=== PATIENT | male | born 1935 | race Caucasian/White ===

== ENCOUNTER 2017-03-16 16:34 | Emergency (ER) | payer MEDICARE ==
[~2017-03-16] VITALS: Ht 175.3 cm; Wt 90.0 kg
[~2017-03-16 16:34] MED LIST: AMBIEN10 MG PO; ASPIRIN EC81 MG PO; ATIVAN0.5 MG PO; BACTRIM DS1 TAB PO; FLEXERIL PO; FLONASE NASAL50 MCG; HYDROCO/APAP1 TA9 PO; LIPITOR20 MG PO; LIPITOR40 MG OR; LISINOPRIL10 MG PO; METOPROL TAR25 MG PO; NITROGLYCER0.4 MG SL; ONCOVITE PO; ONDANSETRON4 MG PO; PLAVIX75 MG OR; SB ASA LOW81 MG PO; ZOLOFT25 MG PO; ZOLPIDEM5 M1 PO
[2017-03-16 18:27] LABS: INFLUENZA A NONE DETECTED (NONE DETECT); INFLUENZA B NONE DETECTED (NONE DETECT)
[2017-03-16] MEDS ORDERED: NAPROSYN500 MG PO (18:52)
[2017-03-16] MEDS ORDERED: BACTRIM DS1 TAB PO (18:52)
[2017-03-16 19:09] VITALS: BP 115/73
== END 2017-03-16 19:09 | disposition home or self-care (01) ==
LOC: ED 16:34
PROVIDERS: Emergency Medicine
DX: R05 Cough (principal); J06.9 Acute upper respiratory infection, unspecified; L03.032 Cellulitis of left toe

== ENCOUNTER 2017-04-20 12:01 | Emergency (ER) | payer MEDICARE ==
[~2017-04-20] VITALS: Ht 175.3 cm; Wt 80.0 kg
[~2017-04-20 12:01] MED LIST changes: +NAPROSYN500 MG PO
[2017-04-20] MEDS ORDERED: [UNRECOGNIZED DRUG - REMARK] PO (12:11)
[2017-04-20 13:42] LABS: HEMATOCRIT 34.1 % (39.0-50.0); HEMOGLOBIN 11.2 g/dl (14.0-18.0); IMMATURE GRANULOCYTES 0.3 % (0.0-1.0); MEAN CELL VOLUME 88.3 fL CALC (80.0-100.0); MEAN CORPUSCULAR HGB CONC 32.8 g/L CALC (32.0-36.0); NEUT# 6.25 thou/uL (1.82-7.42); RED BLOOD COUNT 3.86 mill/uL (4.70-6.10); RED CELL DISTRI WIDTH 12.4 % (11.5-15.5)
[2017-04-20 14:00] LABS: ALBUMIN 3.8 g/dL (3.2-5.0); BILIRUBIN, TOTAL 1.1 mg/dL (0.0-1.4); CALCIUM 8.9 mg/dL (8.4-10.2); CREATININE 1.8 mg/dL (0.7-1.3); POTASSIUM 4.7 mmol/l (3.5-5.1); TOTAL PROTEIN 6.6 g/dL (6.3-8.2)
[2017-04-20] MEDS ORDERED: CLINDAMYCIN300 M1 PO (14:23)
[2017-04-20 14:52] VITALS: BP 156/74
== END 2017-04-20 15:06 | disposition home or self-care (01) ==
LOC: ED 12:01
PROVIDERS: Emergency Medicine
DX: L03.116 Cellulitis of left lower limb (principal); M25.562 Pain in left knee; M25.462 Effusion, left knee

== ENCOUNTER 2018-05-07 09:39 | Emergency (ER) | payer MEDICARE ==
[~2018-05-07] VITALS: Ht 175.3 cm; Wt 72.7 kg
[~2018-05-07 09:39] MED LIST changes: +CLINDAMYCIN300 M1 PO; +[UNRECOGNIZED DRUG - REMARK] PO
[2018-05-07] MEDS ORDERED: TAMSULOSIN HCL0.4 MG PO (10:27)
[2018-05-07 10:55] LABS: URINE BILIRUBIN - DIPSTICK NEGATIVE (NEGATIVE); URINE BLOOD DIPSTICK TRACE-LYSED (NEGATIVE); URINE COLOR YELLOW; URINE GLUCOSE - DIPSTICK NEGATIVE (NEGATIVE); URINE KETONE NEGATIVE (NEGATIVE); URINE LEUK ESTERASE NEGATIVE (NEGATIVE); URINE NITRITE - DIPSTICK NEGATIVE (Negative); URINE PH 5.5 (4.5-8.0); URINE PROTEIN - DIPSTICK NEGATIVE (NEG-TRACE); URINE UROBILINOGEN - DIPSTICK 0.2 E.U./dL (0.2)
[2018-05-07] MEDS ORDERED: PYRIDIUM200 MG PO (11:30)
[2018-05-07] MEDS ORDERED: KEFLEX500 M1 PO (11:30)
[2018-05-07 11:34] VITALS: BP 140/82
== END 2018-05-07 11:34 | disposition home or self-care (01) ==
LOC: ED 09:39
PROVIDERS: Family Medicine
DX: R30.0 Dysuria (principal); N40.0 Benign prostatic hyperplasia without lower urinary tract symptoms; E78.00 Pure hypercholesterolemia, unspecified; Z85.51 Personal history of malignant neoplasm of bladder

== ENCOUNTER 2018-06-04 09:56 | Emergency (ER) | payer MEDICARE ==
[~2018-06-04] VITALS: Ht 175.3 cm; Wt 80.0 kg
[~2018-06-04 09:56] MED LIST changes: +KEFLEX500 M1 PO; +PYRIDIUM200 MG PO; +TAMSULOSIN HCL0.4 MG PO
[2018-06-04 12:02] LABS: HEMATOCRIT 36.2 % (39.0-50.0); IMMATURE GRANULOCYTES 0.1 % (0.0-5.0); MEAN CELL VOLUME 88.1 fL CALC (80.0-100.0); MEAN CORPUSCULAR HGB 29.2 pG CALC (26.0-32.0); MEAN CORPUSCULAR HGB CONC 33.1 g/L CALC (32.0-36.0); NEUT# 4.75 thou/uL (1.82-7.42); RED BLOOD COUNT 4.11 mill/uL (4.70-6.10); RED CELL DISTRI WIDTH 12.6 % (11.5-15.5)
[2018-06-04 12:13] LABS: ALBUMIN 4.5 g/dL (3.2-5.0); BILIRUBIN, TOTAL 1.1 mg/dL (0.0-1.4); CREATININE 1.8 mg/dL (0.7-1.3); POTASSIUM 4.8 mmol/l (3.5-5.1); TOTAL PROTEIN 7.8 g/dL (6.3-8.2)
[2018-06-04] MEDS ORDERED: DULCOLAX10 MG RE (12:38)
[2018-06-04] MEDS ORDERED: MIRALAX3350 N1 PO (12:38)
[2018-06-04 13:09] VITALS: BP 132/72
== END 2018-06-04 13:14 | disposition home or self-care (01) ==
LOC: ED 09:56
PROVIDERS: Emergency Medicine
DX: K59.00 Constipation, unspecified (principal); I10 Essential (primary) hypertension

== ENCOUNTER 2019-04-05 14:56 | Emergency (ER) | payer MEDICARE ==
[~2019-04-05] VITALS: Ht 175.3 cm; Wt 75.0 kg
[~2019-04-05 14:56] MED LIST changes: +DULCOLAX10 MG RE; +MIRALAX3350 N1 PO
[2019-04-05 16:00] LABS: HEMATOCRIT 37.5 % (39.0-50.0); IMMATURE GRANULOCYTES 0.2 % (0.0-5.0); MEAN CELL VOLUME 84.8 fL CALC (80.0-100.0); MEAN CORPUSCULAR HGB 27.1 pG CALC (26.0-32.0); NEUT# 4.78 thou/uL (1.82-7.42); RED BLOOD COUNT 4.42 mill/uL (4.70-6.10); RED CELL DISTRI WIDTH 12.5 % (11.5-15.5)
[2019-04-05 16:37] LABS: ALBUMIN 4.1 g/dL (3.2-5.0); BILIRUBIN, TOTAL 0.7 mg/dL (0.0-1.4); CREATININE 2.1 mg/dL (0.7-1.3); POTASSIUM 4.4 mmol/l (3.5-5.1); TOTAL PROTEIN 7.6 g/dL (6.3-8.2)
[2019-04-05 17:26] VITALS: BP 132/77
== END 2019-04-05 17:35 | disposition home or self-care (01) ==
LOC: ED 14:56
PROVIDERS: Family Medicine
DX: I12.9 Hypertensive chronic kidney disease with stage 1 through stage 4 chronic kidney disease, or unspecified chronic kidney disease (principal); N18.9 Chronic kidney disease, unspecified

== ENCOUNTER 2019-06-09 17:28 | Observation (INO) | payer MEDICARE ==
[~2019-06-09] VITALS: Ht 175.3 cm; Wt 81.0 kg
--- NOTE | 2019-06-09 17:51 | NUR ---
PT TO ROOM FOR EXAM
[2019-06-09 18:57] LABS: HEMATOCRIT 38.5 % (39.0-50.0); HEMOGLOBIN 12.3 g/dl (14.0-18.0); IMMATURE GRANULOCYTES 0.3 % (0.0-5.0); MEAN CELL VOLUME 85.2 fL CALC (80.0-100.0); MEAN CORPUSCULAR HGB 27.2 pG CALC (26.0-32.0); MEAN CORPUSCULAR HGB CONC 31.9 g/L CALC (32.0-36.0); NEUT# 5.04 thou/uL (1.82-7.42); RED BLOOD COUNT 4.52 mill/uL (4.70-6.10); RED CELL DISTRI WIDTH 12.7 % (11.5-15.5)
[2019-06-09 19:19] LABS: PROTHROMBIN TIME 10.6 SECONDS (9.0-12.5)
[2019-06-09 19:34] LABS: ALBUMIN 4.2 g/dL (3.2-5.0); ALKALINE PHOSPHATASE 100 u/l (38-126); ANION GAP 17 (6-22 (CALC)); BILIRUBIN, TOTAL 0.8 mg/dL (0.0-1.4); BUN 26 mg/dL (8-23); BUN/CREATININE RATIO 10 (12-20 (CALC)); CARBON DIOXIDE 21 mmol/l (22-30); CHLORIDE 104 mmol/l (95-108); CREATININE 2.5 mg/dL (0.7-1.3); ETHYL ALCOHOL 0 mg/dl (0-30); GFR 25 ML/MIN (>=60 (CALC)); GFR FOR AFR.AMER. 30 ML/MIN (>=60 (CALC)); SGOT/AST 24 u/l (19-48); SODIUM 136 mmol/l (137-146); TOTAL PROTEIN 7.7 g/dL (6.3-8.2)
--- NOTE | 2019-06-09 19:50 | NUR ---
URINE SPECIMEN COLLECTED. PT ABLE TO STAND AT EDGE OF STRETCHER AND VOID IN URINAL WITHOUT ASSIST. TOLERATED WELL. NO DIZZINESS OBSERVED.
[2019-06-09 20:31] LABS: URINE BILIRUBIN - DIPSTICK NEGATIVE (NEGATIVE); URINE BLOOD DIPSTICK NEGATIVE (NEGATIVE); URINE COLOR YELLOW; URINE GLUCOSE - DIPSTICK NEGATIVE (NEGATIVE); URINE KETONE NEGATIVE (NEGATIVE); URINE LEUK ESTERASE NEGATIVE (NEGATIVE); URINE NITRITE - DIPSTICK NEGATIVE (Negative); URINE PROTEIN - DIPSTICK NEGATIVE (NEG-TRACE); URINE UROBILINOGEN - DIPSTICK 0.2 E.U./dL (0.2)
[2019-06-09 20:32] LABS: BARBITURATES NEGATIVE (NEGATIVE); COCAINE NEGATIVE (NEGATIVE); METHADONE NEGATIVE (NEGATIVE); OXCYCODONE NEGATIVE (NEGATIVE); TETRAHYDROCANNABIONOL NEGATIVE (NEGATIVE); TRICYLIC ANTIDEPRESSANTS NEGATIVE (NEGATIVE)
--- NOTE | 2019-06-09 21:00 | NUR ---
PT ASSISTED W/REMOVING CLOTHING ALL ITEMS PACKAGED. WALLET TAKEN HOME BY FAMILY FRIEND.
--- NOTE | 2019-06-09 21:44 | NUR ---
REPORT PROVIDED TO NURSE REYNOLDS ON [facility] [place].
--- NOTE | 2019-06-09 21:46 | NUR ---
PT TO MEDSUR VIA STRETCHER IV SITE HEALTHY. FLUID CONTINUE VSS. A&OX3 MAEW. SKIN WARM AND DRY. NO APPARENT DISTRESS TELEMETRY IN PLACE.
--- NOTE | 2019-06-09 21:55 | NUR ---
PT ARRIVED TO THE FLOOR VIA WHEELCHAIR ACCOMPANIED BY ED STAFF. PT ALERT AND ORIENTED, PT AMBULATED FROM WHEELCHAIR TO BED WITH A STEADY GATE. VS OBTAINED AND ASSESSMENT COMPLETED AT THIS TIME. RESPIRATIONS EVEN AND UNLABORED ON RA. LUNGS SOUND CLEAR. PEDAL PULSES WEAK. PT DENIES ANY PAIN OR DISCOMFORTAT THIS TIME. PT PROVIDED WITH A SANDWICH AND SODA PER REQUEST. ORIENTED PT TO ROOM AND CALL [facility] [facility]. TELE IN PLACE. PT EDUCATED ON PLAN OF CARE. SAFETY PRECAUTIONS IN PLACE. WILL CONTINUE TO MONITOR.
[2019-06-09 22:02] VITALS: BP 125/67
[2019-06-09 23:03] VITALS: BP 124/76
--- NOTE | 2019-06-09 23:57 | NUR ---
PT RESTING IN BED. ASSISTED PT WITH TV TO GET [employer] NEWS. PT DENIES ANY FURTHER NEEDS AT THIS TIME. SAFETY PRECAUTIONS IN PLACE. WILL CONTINUE TOMONITOR.
[2019-06-10 03:13] VITALS: BP 133/63
--- NOTE | 2019-06-10 03:49 | NUR ---
PT ASSITED TO THE BATHROOM AND BACK TO BED. TELE IN PLACE. NO S/S OF DISTRESS AT THIS TIME. SAFETY PRECAUTIONS IN PLACE. WILL CONITNUE TO MONITOR.
[2019-06-10 07:11] VITALS: BP 113/63
--- NOTE | 2019-06-10 08:00 | NUR ---
ASSESSMENT DONE. TELE IN PLACE. PT IS A&O X3. PT DENIES PAIN AT THIS TIME OR FEELING DIZZY. RESPS EVEN AND UNLABORED. IVF INFSUING WELL. SAFETY PRECAUTIONS REINFORCED AND CALL LIGHT IN REACH.
[2019-06-10 10:49] VITALS: BP 118/64
[2019-06-10 10:51] LABS: CREATININE 2.1 mg/dL (0.7-1.3); POTASSIUM 4.8 mmol/l (3.5-5.1)
--- NOTE | 2019-06-10 11:55 | NUR ---
PT IS SITTING IN RECLINER WAITING TO BE DC. TOLD PT I'M WAITING FOR MD TO ADDED ORDERS. PT VERBALIZED UNDERSTANDING. CALL LIGHT IN REACH.
[2019-06-10] MEDS ORDERED: ASPIRIN ADULT L81 M2 PO (14:08)
[2019-06-10] MEDS ORDERED: LISINOPRIL20 MG PO (14:08)
[2019-06-10] MEDS ORDERED: ATORVASTATIN CA40 MG PO (14:08)
[2019-06-10] MEDS ORDERED: ZOLPIDEM10 MG PO (14:08)
--- NOTE | 2019-06-10 16:23 | NUR ---
Discharge instructions given. Patient verbalizes understanding of same. Discharged in stable condition via Wheelchair to Home with friend. All belongings sent with pt.
--- NOTE | 2019-06-10 17:28 | NUR ---
Attempted to see patient - he had already DC'd
== END 2019-06-10 16:23 | disposition home or self-care (01) ==
LOC: ED 17:28 → ED-I 18:11 → ED 20:07 → MS2 20:08
PROVIDERS: ADMIT Internal Medicine; ATTEND Internal Medicine
DX: E86.0 Dehydration (principal); I12.9 Hypertensive chronic kidney disease with stage 1 through stage 4 chronic kidney disease, or unspecified chronic kidney disease; N18.3 Chronic kidney disease, stage 3 (moderate); I25.10 Atherosclerotic heart disease of native coronary artery without angina pectoris; G30.9 Alzheimer's disease, unspecified; F02.80 Dementia in other diseases classified elsewhere, unspecified severity, without behavioral disturbance, psychotic disturbance, mood disturbance, and anxiety; E78.5 Hyperlipidemia, unspecified; Z85.51 Personal history of malignant neoplasm of bladder; Z85.50 Personal history of malignant neoplasm of unspecified urinary tract organ; Z95.0 Presence of cardiac pacemaker; Z95.5 Presence of coronary angioplasty implant and graft
CPT/HCPCS: G0378